=== PATIENT | female | born 1940 | race Caucasian/White ===

== ENCOUNTER → 2022-06-05 | Day surgery (SDC) | payer MEDICARE ==
[~2022-06-05] MED LIST: AMLODIPINE BESYL5 MG PO; ARIMIDEX1 MG PO; FENTANYL CITRATE/PF 100MCG/2 ML INJ ONE; LACTATED RINGER'S 1,000 ML ONE; LOSARTAN POTASS25 MG PO; MIDAZOLAM HCL 2 MG/2 ML VIAL ONE; MONTELUKAST SOD10 MG PO; OR PHACO EYE KIT ONE; PREOP PHACO EYE KIT ONE; ZYRTEC10 M3 PO
[2022-06-05 08:00] VITALS: BP 163/88
== END | disposition home or self-care (01) ==
LOC: OR 06:57
PROVIDERS: ATTEND Ophthalmology
DX: H25.12 Age-related nuclear cataract, left eye (principal); I10 Essential (primary) hypertension; N63.0 Unspecified lump in unspecified breast; N85.8 Other specified noninflammatory disorders of uterus; Z79.899 Other long term (current) drug therapy
CPT/HCPCS: 66984; J2250; J3010; J7121; V2632

== ENCOUNTER → 2022-06-19 | Day surgery (SDC) | payer MEDICARE ==
[2022-06-14 09:18] LABS: BASOPHILS # (AUTO) 0.1 (0.0-0.1); BASOPHILS % 1.1 % (0.0-1.0); EOSINOPHILS # (AUTO) 0.4 (0.0-0.4); EOSINOPHILS % 6.6 % (0.0-6.0); HEMATOCRIT 42.3 % (34.2-44.1); HEMOGLOBIN 13.1 g/dL (12.0-16.0); LYMPHOCYTES # (AUTO) 2.1 (1.0-3.2); LYMPHOCYTES % 32.7 % (18.0-39.1); MEAN CORPUSCULAR HEMOGLOBIN 29.1 pg (28-32); MONOCYTES # (AUTO) 0.5 (0.2-0.8); MONOCYTES % 7.7 % (4.4-11.3); NEUTROPHILS # (AUTO) 3.3 (2.1-6.9); NEUTROPHILS % 51.6 % (38.7-80.0); PLATELET COUNT 208 x10e3/uL (140-360); RED CELL DISTRIBUTION WIDTH 12.6 % (11.7-14.4)
[~2022-06-19] MED LIST changes: +ESTROGEN BLOCKER; -LACTATED RINGER'S 1,000 ML ONE
[2022-06-19 11:20] VITALS: BP 161/81
== END | disposition home or self-care (01) ==
LOC: OR 07:57
PROVIDERS: ATTEND Ophthalmology
DX: H25.12 Age-related nuclear cataract, left eye (principal); Z01.812 Encounter for preprocedural laboratory examination; Z79.899 Other long term (current) drug therapy
CPT/HCPCS: 36415; 66984; 85025; J2250; J3010; V2632